=== PATIENT | female | born 1970 | race African-American/Black ===

== ENCOUNTER 2020-06-25 07:21 | Day surgery (SDC) | payer MEDICAID, OTHER ==
[~2020-06-25 07:21] MED LIST: LIDOCAINE 0.5% INJ-PF (5 MG/ML) 50 ML SDV SUBCUT PRN; RINGERS SOLUTION,LACTATED 1,000 ML IV PRN
[2020-06-25] MEDS ORDERED: PROPOFOL INJ 200 MG/20 ML VIAL IV ONE (07:28)
--- NOTE | 2020-06-25 09:41 | Discharge Summary ---
Discharge Summary (SDC) - Discharge Final Diagnosis: Sigmoid diverticulosis; otherwise normal colonoscopy Date of Surgery: 06/25/20 Discharge Date: 06/25/20 Condition: Good Treatment or Instructions: [facility] [place] [id number] POST ENDOSCOPY DISCHARGE INSTRUCTIONS 1. Diet: Start clear liquids that a regular diet as tolerated. 2. Resume all preoperative medications. All oral anticoagulants and aspirins can be resumed 24 hours after procedure. 3. If a polypectomy was performed some bleeding per rectum may occur. This should stop within 3 days. If not, please contact the office. 4. If you had a colonoscopy you may experience some bloating and delayed return of normal bowel function for several days, your regular bowel movement pattern should resume within a week. 5. Please contact [facility] at to make an appointment with Dr. Chavarria for 1 to 3 weeks following procedure. 6. If you have any questions or concerns regarding your care,treatment plan or follow up, please contact our office. 7. Per clinical guidelines we recommend you undergo a repeat colonoscopy in 10 years. Discharge Diet: As Tolerated Discharge Activity: Activity As Tolerated Home Care Assistance: None Needed Report the Following to Your Physician Immediately: Shortness of Breath, Increase in Pain, Fever over 101 Degrees
--- NOTE | 2020-06-25 09:43 | Operative Report ---
Operative Report DATE OF SURGERY: 06/25/20 PREOPERATIVE DIAGNOSIS: Screening for colorectal carcinoma POSTOPERATIVE DIAGNOSIS: Sigmoid diverticulosis otherwise normal colon OPERATION: Total colonoscopy to cecum with photodocumentation SURGEON: NERI VÁSQUEZ ANESTHESIA: LMAC TISSUE REMOVED OR ALTERED: None COMPLICATIONS: None INTRAOPERATIVE FINDINGS: See below PROCEDURE: Obtaining informed consent the patient was taken from the preoperative holding area to the main endoscopy suite where monitoring devices were attached to the patient. Plan and surgical timeout were conducted The patient was placed in the left lateral decubitus position with knees to chest. A perianal examination was performed. There was no visible or palpable anorectal pathology. Sphincter tone was felt to be normal. The flexible adult colonoscope was advanced through the anal rectal canal, all the way to the cecum. Visualization of the cecum was achieved by demonstration of the ileocecal valve, the appendiceal orifice and transillumination of the anterior abdominal wall. This was an excellent study on the well-prepped bowel. The colonoscope was withdrawn slowly and methodically checked and the mucosa carefully. There was no evidence of tumor, stricture, bleeding or polyp. There were extensive diverticulosis of the sigmoid colon, no inflammation, no narrowing; The scope was slowly withdrawn through the anal rectal canal. Complete visualization of the rectum was achieved with photodocumentation. The scope was withdrawn to the patient's anus. The patient tolerated the procedure well and was taken to the recovery area in stable condition. Per surveillance guidelines, patient will be an appropriate candidate for follow-up colonoscopy in 10 years.
[2020-06-25 13:15] VITALS: BP 127/80
== END 2020-06-25 10:05 | disposition home or self-care (01) ==
LOC: END 07:21
PROVIDERS: ATTEND Surgery
DX: Z12.11 Encounter for screening for malignant neoplasm of colon (principal); K57.30 Diverticulosis of large intestine without perforation or abscess without bleeding; I10 Essential (primary) hypertension; Z79.899 Other long term (current) drug therapy; Z03.818 Encounter for observation for suspected exposure to other biological agents ruled out
CPT/HCPCS: 45378; 87635; 00812; J2704; C9803; 812